=== PATIENT | female | born 1930 | race Caucasian/White ===

== ENCOUNTER → 2016-09-15 | Outpatient (CLI) | payer MEDICARE, OTHER ==
[~2016-09-15] MED LIST: ARICEPT10 M1 PO; ARICEPT5 MG PO; ASPIRIN81 MG PO; ATI; CARDIZEM CD120 MG PO; COUMADIN2 MG PO; DOC-Q-LACE100 MG PO; LANOXIN62.5 MCG PO; LASIX20 M1 PO; LEVOTH; LEVOTHROID (SY50 MCG PO; LOPRESSOR50 M1 PO; PRAVACHOL40 MG PO; SEROQUEL25 MG PO; TYLENOL325 MG PO; ULTRAM; VITAMIN B PO
== END | disposition disaster alternative care site (69) ==
LOC: GAMB 09:12
DX: R41.82 Altered mental status, unspecified (principal)
CPT/HCPCS: A0425; A0427